=== PATIENT | female | born 1965 | race Two or more races ===

== ENCOUNTER 2016-06-15 11:16 | Inpatient (IN) | payer MEDICARE, MEDICAID ==
[~2016-06-15] VITALS: Ht 160 cm; Wt 86.5 kg
[2016-06-15 13:11] VITALS: BP 120/74
[2016-06-15] MEDS ORDERED: LORazepam 2 MG TABLET PO PRN (13:30)
[2016-06-15] MEDS ORDERED: ZOLPIDEM TARTRATE 10 MG TABLET PO PRN (13:30)
[2016-06-15] MEDS ORDERED: HALOPERIDOL 5 MG TABLET PO PRN (13:30)
[2016-06-15] MEDS ORDERED: ATOR10TA84 PO (14:07)
[2016-06-15] MEDS ORDERED: DIVA500T35 PO (14:07)
[2016-06-15] MEDS ORDERED: ARIP15TA3 PO (14:07)
[2016-06-15] MEDS ORDERED: LEVO25TA4 PO (14:07)
[2016-06-15 16:23] VITALS: BP 137/73
[2016-06-15 20:39] VITALS: BP 123/78
[2016-06-15] MEDS: ACETAMINOPHEN 325 MG TABLET PO PRN (20:41)
[2016-06-15] MEDS ORDERED: ATORVASTATIN CALCIUM 20 MG TABLET PO SCH (21:00)
[2016-06-16 05:39] VITALS: BP 144/83
[2016-06-16] MEDS: ACETAMINOPHEN 325 MG TABLET PO PRN ×2 (05:41→13:59)
[2016-06-16] MEDS: LEVOTHYROXINE SODIUM 50 MCG TABLET PO SCH (06:41)
[2016-06-16 07:49] LABS: BASOPHILS # (AUTO) 0.03 K/uL (0.00-0.20); BASOPHILS % (AUTO) 0.6 % (0.0-2.0); EOSINOPHILS # (AUTO) 0.05 K/uL (0.00-0.70); EOSINOPHILS % (AUTO) 0.92 % (1.0-6.0); HEMATOCRIT 30.1 % (36-46); HEMOGLOBIN 10.3 g/dL (12.0-16.0); LYMPHOCYTES # (AUTO) 1.4 K/uL (1.0-4.8); LYMPHOCYTES % (AUTO) 26.3 % (22.0-44.0); MEAN CORPUSCULAR HEMOGLOBIN 30.8 pg (26.0-34.0); MEAN CORPUSCULAR HGB CONC 34.2 G/dL (31.0-37.0); MEAN CORPUSCULAR VOLUME 90 fL (80-100); MONOCYTES # (AUTO) 0.5 K/uL (0.1-1.0); MONOCYTES % (AUTO) 9.5 % (2.0-9.0); NEUTROPHILS # (AUTO) 3.5 K/uL (1.8-7.7); NEUTROPHILS % (AUTO) 62.8 % (40.0-70.0); PLATELET COUNT (AUTO) 227 K/uL (150-450); RED BLOOD CELL COUNT(AUTO) 3.34 MIL/uL (4.00-5.20); RED CELL DISTRIBUTION WIDTH 13.9 % (11.5-14.5); WHITE BLOOD COUNT (AUTO) 5.5 K/uL (4.5-11.0)
[2016-06-16 08:39] LABS: APPEARANCE,URINE CLEAR (CLEAR); GLUCOSE, URINE (UA) NEGATIVE (NEGATIVE); KETONES,URINE NEGATIVE (NEGATIVE); LEUKOCYTE ESTERASE ,URINE NEGATIVE (NEGATIVE); OCCULT BLOOD,URINE NEGATIVE (NEGATIVE); PROTEIN,URINE NEGATIVE (NEGATIVE)
[2016-06-16 08:50] LABS: ADD UA MICROSCOPIC NO
[2016-06-16 09:02] LABS: ALBUMIN 3.3 g/dL (3.4-5.0); BILIRUBIN,TOTAL 0.2 mg/dL (0.1-1.0); CALCIUM, TOTAL 8.2 mg/dL (8.8-10.5); CREATININE 2.75 mg/dL (0.60-1.30); POTASSIUM 4.2 mmol/L (3.5-5.1); THYROID STIMULATING HORMONE 0.08 uIU/mL (0.36-3.74); TOTAL PROTEIN, SERUM 6.9 g/dL (6.4-8.2)
[2016-06-16] MEDS ORDERED: DIVALPROEX SODIUM 500 MG DR TABLET PO SCH (09:15)
[2016-06-16] MEDS ORDERED: ARIPiprazole 15 MG TABLET PO SCH (09:15)
[2016-06-16 09:17] VITALS: BP 126/71
[2016-06-16] MEDS ORDERED: LORazepam 2 MG TABLET PO PRN (10:00)
[2016-06-16] MEDS ORDERED: HALOPERIDOL 5 MG TABLET PO PRN (10:00)
[2016-06-16] MEDS: ARIPiprazole 15 MG TABLET PO SCH (10:50)
[2016-06-16] MEDS: DIVALPROEX SODIUM 500 MG DR TABLET PO SCH (10:50)
[2016-06-16 14:00] VITALS: BP_SYST 140; BP_SYST 142; BP_DIAS 82; BP_DIAS 95
[2016-06-16 16:17] VITALS: BP 140/81
[2016-06-16] MEDS: ATORVASTATIN CALCIUM 20 MG TABLET PO SCH (20:37)
[2016-06-16] MEDS ORDERED: ACETAMINOPHEN 325 MG TABLET PO PRN (23:15)
[2016-06-17 06:30] VITALS: BP 135/84
[2016-06-17] MEDS: LEVOTHYROXINE SODIUM 50 MCG TABLET PO SCH (06:35)
[2016-06-17] MEDS: ACETAMINOPHEN 325 MG TABLET PO PRN (06:35)
[2016-06-17] MEDS: DIVALPROEX SODIUM 500 MG DR TABLET PO SCH (08:24)
[2016-06-17] MEDS: ARIPiprazole 15 MG TABLET PO SCH (08:25)
[2016-06-17] MEDS: IBUPROFEN 400 MG TABLET PO PRN (14:16)
[2016-06-17 14:17] VITALS: BP 153/79
[2016-06-17] MEDS: ATORVASTATIN CALCIUM 20 MG TABLET PO SCH (20:33)
[2016-06-17] MEDS: ZOLPIDEM TARTRATE 10 MG TABLET PO PRN (21:03)
[2016-06-18] MEDS: LEVOTHYROXINE SODIUM 50 MCG TABLET PO SCH (06:31)
[2016-06-18 08:27] VITALS: BP 124/74
[2016-06-18] MEDS: DIVALPROEX SODIUM 500 MG DR TABLET PO SCH (08:32)
[2016-06-18] MEDS: ARIPiprazole 15 MG TABLET PO SCH (08:33)
[2016-06-18 17:19] VITALS: BP 118/71
[2016-06-18] MEDS: ATORVASTATIN CALCIUM 20 MG TABLET PO SCH (20:32)
[2016-06-18] MEDS: ZOLPIDEM TARTRATE 10 MG TABLET PO PRN (20:32)
[2016-06-19] MEDS: LEVOTHYROXINE SODIUM 50 MCG TABLET PO SCH (06:24)
[2016-06-19 06:35] VITALS: BP 126/74
[2016-06-19] MEDS: IBUPROFEN 400 MG TABLET PO PRN ×2 (06:37→13:52)
[2016-06-19] MEDS: DIVALPROEX SODIUM 500 MG DR TABLET PO SCH (08:11)
[2016-06-19] MEDS: ARIPiprazole 15 MG TABLET PO SCH (08:11)
[2016-06-19 08:31] VITALS: BP 127/73
[2016-06-19 11:28] VITALS: BP 123/65
[2016-06-19] MEDS: ACETAMINOPHEN 325 MG TABLET PO PRN (11:32)
[2016-06-19 13:47] VITALS: BP 128/69
[2016-06-19 18:19] VITALS: BP 117/70
[2016-06-19] MEDS: ATORVASTATIN CALCIUM 20 MG TABLET PO SCH (20:19)
[2016-06-19] MEDS: ZOLPIDEM TARTRATE 10 MG TABLET PO PRN (20:19)
[2016-06-20 06:00] VITALS: BP 118/61
[2016-06-20] MEDS: LEVOTHYROXINE SODIUM 50 MCG TABLET PO SCH (06:17)
[2016-06-20] MEDS: DIVALPROEX SODIUM 500 MG DR TABLET PO SCH (08:20)
[2016-06-20] MEDS: ARIPiprazole 15 MG TABLET PO SCH (08:20)
[2016-06-20 08:33] VITALS: BP 121/72
[2016-06-20 16:30] VITALS: BP 120/81
[2016-06-20] MEDS: ATORVASTATIN CALCIUM 20 MG TABLET PO SCH (20:03)
[2016-06-20] MEDS: ZOLPIDEM TARTRATE 10 MG TABLET PO PRN (21:03)
[2016-06-21 06:15] VITALS: BP 139/78
[2016-06-21] MEDS: LEVOTHYROXINE SODIUM 50 MCG TABLET PO SCH (06:16)
[2016-06-21] MEDS: DIVALPROEX SODIUM 500 MG DR TABLET PO SCH (08:19)
[2016-06-21] MEDS: ARIPiprazole 15 MG TABLET PO SCH (08:19)
[2016-06-21 08:31] VITALS: BP 150/70
[2016-06-21] MEDS ORDERED: ATOR20TA86 PO (08:33)
[2016-06-21] MEDS ORDERED: ARIP15TA3 PO (08:33)
[2016-06-21] MEDS ORDERED: LEVO50 PO (08:34)
== END 2016-06-21 15:24 | disposition home or self-care (01) | DRG 885 ==
LOC: B3A 13:28
PROVIDERS: ADMIT Psychiatry & Neurology Child & Adolescent Psychiatry; ATTEND Psychiatry & Neurology Child & Adolescent Psychiatry
DX: F25.0 Schizoaffective disorder, bipolar type (principal); E78.5 Hyperlipidemia, unspecified; I95.9 Hypotension, unspecified; E03.9 Hypothyroidism, unspecified; D64.9 Anemia, unspecified; N18.9 Chronic kidney disease, unspecified; F10.10 Alcohol abuse, uncomplicated; Z88.0 Allergy status to penicillin
CPT/HCPCS: 80307; 84439; 84443